=== PATIENT | male | born 1960 | race African-American/Black ===

== ENCOUNTER 2019-04-14 11:22 | Observation (INO) | payer BC ==
[2019-04-14] MEDS ORDERED: Labetalol HCl 100 MG/20 ML VIAL ONE (12:12)
--- NOTE | 2019-04-14 12:16 | RAD ---
PORTABLE CHEST 1 VIEW: DATE: 04/14/2019. TIME: 12:07 p.m. HISTORY: Chest pain. FINDINGS: The heart size is normal. The lungs are expanded without lobar consolidation, pneumothoraces, or ple ural effusions. IMPRESSION: No acute process. POS: OFF
[2019-04-14 12:19] LABS: #Eosinphils 0.1 thou/uL (0.0-0.7); #Monocytes 0.5 thou/uL (0.11-0.59); %Basophils 0.9 % (0.0-1.0); %Eosinophils 2.8 % (0.0-10.0); %Lymphocytes 28.7 % (21.0-51.0); %Monocytes 13.5 % (0.0-10.0); %Neutrophils 54.1 % (42.0-75.0); Hemoglobin 14.9 g/dL (14.0-18.0); Mean Corpuscular HGB CONC 35.1 g/dL (32.0-36.0); Mean Corpuscular Volume 99.7 fL (78.0-98.0); Mean Platelet Volume 7.1 fL (7.4-10.4); Platelet Count 208 thou/uL (130-400); Red Blood Cell (RBC) Count 4.24 mill/uL (4.70-6.10); White Blood Cell (WBC) Count 3.6 thou/uL (4.8-10.8)
[2019-04-14] MEDS ORDERED: Ondansetron PF 4 MG/2 ML Vial ONE (12:53)
[2019-04-14 13:03] LABS: ALT (SGPT) 26 U/L (8-55); AST (SGOT) 42 U/L (5-34); Albumin 4.5 g/dL (3.5-5.0); Alkaline Phosphatase 97 U/L (40-110); Anion Gap 17 mmol/L (10-20); BUN (Urea Nitrogen) 11 mg/dL (8.4-25.7); Bilirubin, Total 0.7 mg/dL (0.2-1.2); Calc. Creatinine Clearance 0 mL/min (70-130); Calcium 8.9 mg/dL (7.8-10.44); Carbon Dioxide 24 mmol/L (22-29); Chloride 105 mmol/L (98-107); Estimated GFR-MDRD Greater than 90; Globulin 2.9 g/dL (2.4-3.5); Glucose 89 mg/dL (70-105); Lipase 36 U/L (8-78); Potassium 4.1 mmol/L (3.5-5.1); Protein, Total 7.4 g/dL (6.0-8.3); Sodium 142 mmol/L (136-145)
[2019-04-14] MEDS ORDERED: Nitroglycerin 0.4 MG TAB (25 Tab Bottle) PO PRN (15:31)
[2019-04-14] MEDS ORDERED: Acetaminophen 650 MG Suppository PR PRN (15:36)
[2019-04-14] MEDS ORDERED: Acetaminophen 325 MG TAB PO PRN (15:36)
[2019-04-14] MEDS ORDERED: hydrALAZINE 20 MG/ML VIAL SLOW IVP PRN (15:43)
--- NOTE | 2019-04-14 15:50 | PDOC.HHP ---
Hospitalist HPI - History of Present Illness Chest pain History of Present Illness: The patient is a 58/M with PMH significant for HTN (non compliant) and smoking that presents for above complaint. While at work, doing non physical activity, developing left sided chest pain, onset 0740, non radiating, describes as constant pressure, exacerbated by nothing and relieved by nothing. Reports associated SOB, denies nausea, diaphoresis and light headedness. Reports having similar episode yesterday and several other times in the past 6 to 7 months. Each time he has called EMS, and they reported that his blood pressure was significantly elevated each time. Patient declined transport and chose to forego any treatment or workup. Reports pain would be relieved after resting or taking nap. Because the pain was persistent, the patient went to his local clinic for further evaluation. There, he reports that his blood pressure was elevated, SBP > 200, EMS was called. Patient was given full dose ASA, nitro SL x1, Nitro paste 1inch on chest and IVFs with resolution of chest pain. ED Course: EKG NSR with T wave inversions in inferior and lateral leads with some prolong QT. CXR negative Trop negative x 1 Patient became hypotensive and diaphoretic, so nurse removed nitro paste, gave zofran and 1L NS. Hospitalist ROS - Review of Systems Constitutional: denies: fever, chills, sweats, weakness, malaise, other Eyes: denies: pain, vision change, conjunctivae inflammation, eyelid inflammation, redness, other ENT: denies: ear pain, ear discharge, nose pain, nose discharge, nose congestion , mouth pain, mouth swelling, throat pain, throat swelling, other Respiratory: reports: shortness of breath. denies: cough, hemoptysis, SOB with excertion, sputum, wheezing Cardiovascular: reports: chest pain. denies: palpitations, orthopnea, paroxysmal noc. dyspnea, edema, light headedness Gastrointestinal: reports: nausea. 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) Gastrointestinal: reports: no pertinent history Heme/Onc: reports: no pertinent history Hepatobiliary: reports: no pertinent history Psych: reports: no pertinent history Musculoskeletal: reports: no pertinent history Infectious Disease: reports: no pertinent history ENT: reports: no pertinent history Renal/: reports: no pertinent history Dermatology: reports: no pertinent history - Past Surgical History Past Surgical History: reports: no pertinent history - Family History Family History: reports: cardiac disorder, respiratory disorder - Social History Smoking Status: Current every day smoker Tobacco Type: cigarettes Alcohol: reports: None Drugs: reports: none Living Situation: With Family 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, 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 - Exam General Appearance: NAD, awake alert Heart: RRR, no murmur, no gallops, no rubs, normal peripheral pulses Respiratory: CTAB, no wheezes, no rales, no ronchi Gastrointestinal: soft, non-tender, non-distended, normal bowel sounds, no guarding, no rigidity, tender to palpation Extremities: no cyanosis, no clubbing Neurological: cranial nerve grossly intact Psychiatric: normal affect, A&O x 3 Hospitalist Results - Labs Result Diagrams: 04/14/19 12:00 04/14/19 12:00 Lab results: WBC 3.6 thou/uL (4.8-10.8) L 04/14/19 12:00 Hgb 14.9 g/dL (14.0-18.0) 04/14/19 12:00 Hct 42.3 % (42.0-52.0) 04/14/19 12:00 MCV 99.7 fL (78.0-98.0) H 04/14/19 12:00 Plt Count 208 thou/uL (130-400) 04/14/19 12:00 Neutrophils % 54.1 % (42.0-75.0) 04/14/19 12:00 Sodium 142 mmol/L (136-145) 04/14/19 12:00 Potassium 4.1 mmol/L (3.5-5.1) 04/14/19 12:00 Chloride 105 mmol/L (98-107) 04/14/19 12:00 Carbon Dioxide 24 mmol/L (22-29) 04/14/19 12:00 BUN 11 mg/dL (8.4-25.7) 04/14/19 12:00 Creatinine 0.97 mg/dL (0.7-1.3) 04/14/19 12:00 Glucose 89 mg/dL (70-105) 04/14/19 12:00 Calcium 8.9 mg/dL (7.8-10.44) 04/14/19 12:00 Total Bilirubin 0.7 mg/dL (0.2-1.2) 04/14/19 12:00 AST 42 U/L (5-34) H 04/14/19 12:00 ALT 26 U/L (8-55) 04/14/19 12:00 Alkaline Phosphatase 97 U/L (40-110) 04/14/19 12:00 Troponin I 0.019 ng/mL (< 0.028) 04/14/19 12:00 Serum Total Protein 7.4 g/dL (6.0-8.3) 04/14/19 12:00 Albumin 4.5 g/dL (3.5-5.0) 04/14/19 12:00 Lipase 36 U/L (8-78) 04/14/19 12:00 Additional comment: Laboratory Tests 04/14/19 04/14/19 12:00 12:00 Troponin I 0.019 Lipase 36 - EKG Interpretation EKG: NSR, T wave inversion in inferior, lateral leads, prolong QT - Radiology Interpretation Chest x-ray Status: report reviewed by me Hospitalist H&P A/P - Plan Plan: Chest pain currently resolved Impression: Chest pain, unstable angina HTN, chronic Tobacco abuse Plan: director of cardiac rehabilitation Trend troponins Continue ASA Start BB, AYLEEN, Statin Monitor Blood pressure order FLP, TSH Echocardiogram Consult cardiology NPO after midnight Repeat CMP, CBC
[2019-04-14] MEDS ORDERED: Labetalol HCl 100 MG/20 ML VIAL SLOW IVP PRN (16:08)
[2019-04-14] MEDS ORDERED: Nitroglycerin 2% Ointment 1 INCH/1 GM Packet TOP PRN (16:18)
[2019-04-14 16:21] LABS: Troponin I Less than 0.010 ng/mL (< 0.028)
[2019-04-14 17:32] VITALS: BMI 25.9
[2019-04-14] MEDS: Carvedilol 6.25 MG TAB PO SCH (17:37)
[2019-04-14 18:56] LABS: INR-International Normal Ratio 0.9; PTT 29.7 SEC (22.9-36.1); Prothrombin Time 12.4 SEC (12.0-14.7)
[2019-04-14 19:09] LABS: Troponin I Less than 0.010 ng/mL (< 0.028)
--- NOTE | 2019-04-14 20:52 | PRG ---
DATE OF SERVICE: 04/14/2019 SUBJECTIVE: The patient was seen and examined. In summary, the patient is a 58-year-old patient with hypertension, currently not taking medication with ongoing tobacco abuse, presented to the emergency room with chest discomfort. His systolic blood pressures were over 200. His chest discomfort improved with nitroglycerin. His troponins were negative. I reviewed the current vital signs. He does not take any prescription medication. OBJECTIVE: LUNGS: Clear to auscultation bilaterally. HEART: S1 and S2 present. LABORATORY DATA: His labs were reviewed. DIAGNOSTIC DATA: EKG showed sinus rhythm with left ventricular hypertrophy with nonspecific ST-T wave changes. Chest x-ray was negative. I agree with the history and physical by Devin Easton. We will keep the patient n.p.o. past midnight. Echocardiogram will be obtained. We will follow troponins. We will start him on low-dose carvedilol with AYELEN inhibitor. Job ID: [id number]
[2019-04-14] MEDS: Lisinopril 5 MG TAB PO SCH (20:53)
[2019-04-14] MEDS ORDERED: Atorvastatin Calcium 40 MG TAB PO SCH (21:00)
[2019-04-14] MEDS ORDERED: Sodium Chloride 0.9% 1,000 ML IV SCH (23:30)
[2019-04-15 05:09] LABS: Band 2 % (5-11); Eosinophils 2 % (0-10); Hemoglobin 14.3 g/dL (14.0-18.0); Lymphocytes 31 % (21-51); MDiff Complete? YES; Mean Corpuscular HGB CONC 34.2 g/dL (32.0-36.0); Mean Corpuscular Hemoglobin 34.5 pg (27.0-31.0); Mean Platelet Volume 7.2 fL (7.4-10.4); Monocytes 7 % (0-10); Neutrophil 58 % (42-75); Platelet Count 187 thou/uL (130-400); Platelet Morphology Comment Appears Adequate; Red Blood Cell (RBC) Count 4.15 mill/uL (4.70-6.10); White Blood Cell (WBC) Count 3.4 thou/uL (4.8-10.8)
[2019-04-15 05:20] LABS: ALT (SGPT) 21 U/L (8-55); AST (SGOT) 32 U/L (5-34); Albumin 3.9 g/dL (3.5-5.0); Alkaline Phosphatase 86 U/L (40-110); Anion Gap 12 mmol/L (10-20); BUN (Urea Nitrogen) 10 mg/dL (8.4-25.7); Calc. Creatinine Clearance 98 mL/min (70-130); Calcium 9.3 mg/dL (7.8-10.44); Carbon Dioxide 27 mmol/L (22-29); Cardiac Risk 1.8 (Less than 4.5); Chloride 104 mmol/L (98-107); Cholesterol 171 mg/dl (< 200 Desired); Estimated GFR-MDRD Greater than 90; Glucose 90 mg/dL (70-105); HDL Cholesterol 93 mg/dL (>60 Neg Risk); LDL Cholesterol, Calculated 59 mg/dL; Potassium 3.8 mmol/L (3.5-5.1); Protein, Total 6.9 g/dL (6.0-8.3); Sodium 139 mmol/L (136-145); Triglycerides 94 mg/dL (Less than 150)
[2019-04-15] MEDS: Carvedilol 6.25 MG TAB PO SCH ×2 (08:00→15:47)
[2019-04-15] MEDS: Lisinopril 5 MG TAB PO SCH (08:00)
--- NOTE | 2019-04-15 08:28 | PDOC.HOSPP ---
- Subjective Encounter Date: 04/15/19 Encounter Time: 10:20 Subjective: Patient without any chest pain. No SOB. NPO. - Objective Vital Signs & Weight: Vital Signs (12 hours) Temp Pulse Resp BP BP Pulse Ox 04/15/19 08:00 64 04/15/19 03:18 98.6 F 64 16 167/98 H 97 04/15/19 00:43 98.0 F 72 16 153/91 H 96 04/14/19 20:53 75 Weight Weight 160 lb 5 oz I&O: 04/14/19 04/15/19 04/16/19 06:59 06:59 06:59 Intake Total 240 Balance 240 Result Diagrams: 04/15/19 04:30 04/15/19 04:30 Hospitalist ROS - Review of Systems Constitutional: denies: fever, chills Respiratory: denies: cough, shortness of breath Cardiovascular: denies: chest pain, palpitations Gastrointestinal: denies: nausea, vomiting, abdominal pain - Medication Medications: Active Medications Generic Name Dose Route Start Last Admin Trade Name Sukhwinderq PRN Reason Stop Dose Admin Aspirin 81 mg 04/15/19 09:00 04/15/19 08:00 Ecotrin PO 81 mg DAILY VIOLETA Administration Atorvastatin Calcium 40 mg 04/14/19 21:00 04/14/19 20:53 Lipitor PO 40 mg HS VIOLETA Administration Carvedilol 6.25 mg 04/14/19 17:00 04/15/19 08:00 Coreg PO 6.25 mg BID-WM VIOLETA Administration Lisinopril 5 mg 04/14/19 21:00 04/15/19 08:00 Zestril PO 5 mg BID VIOLETA Administration Sodium Chloride 10 ml 04/14/19 21:00 04/15/19 08:00 Flush - Normal Saline IVF 10 ml Q12HR VIOLETA Administration - Exam General Appearance: NAD, awake alert ENT: moist mucosa Heart: RRR, no murmur, no gallops, no rubs Respiratory: CTAB, no wheezes, no rales, no ronchi Gastrointestinal: soft, non-tender, non-distended, normal bowel sounds Psychiatric: normal affect, normal behavior, A&O x 3 Hosp A/P (1) Unstable angina Status: Acute (2) Hypertension Code(s): I10 - ESSENTIAL (PRIMARY) HYPERTENSION Status: Chronic Qualifiers: Hypertension type: essential hypertension Qualified Code(s): I10 - Essential (primary) hypertension Plan: uncontrolled (3) Tobacco abuse Code(s): Z72.0 - TOBACCO USE Status: Chronic - Plan NPO, ECHO pending Patient with multiple risk factors and abnormal EKG, flipped T-waves in lateral leads. Will get NM stress test, should be able to exercise for it. Cardiology consulted.
[2019-04-15] MEDS ORDERED: Aspirin 81 mg Enteric Coated Tablet PO SCH (09:00)
--- NOTE | 2019-04-15 11:54 | CON ---
DATE OF CONSULTATION: 04/15/2019 HISTORY OF PRESENT ILLNESS: A 58-year-old male, current smoker, with past medical history of hypertension, presented yesterday morning for 3-1/2 hour episode of chest pain. Denied SOB, palpitations, nausea, or diaphoresis. The patient reports he had similar left-sided chest pain 2 days prior, that lasted for about 2 to 3 hours while he was at work, and then resolved when he went home. The patient reported the pain was left-sided and felt like pressure, 8/10. He went to be seen at clinic yesterday and they found that his blood pressure was elevated, systolic above 200, so EMS was called and he was transported here. The patient was given aspirin and nitroglycerin, and his pain resolved. However , his blood pressure dropped significantly, so the nitroglycerin paste was taken off and the patient was given some IV fluids. On his EKG, he had diffuse T-wave inversions. The patient reports significant family history of heart attacks in his sisters and his son at 33 years of age. ALLERGIES: NONE. MEDICATIONS: None. PAST MEDICAL HISTORY: 1. Hypertension. 2. Tobacco abuse. PAST SURGICAL HISTORY: None. SOCIAL HISTORY: The patient smokes half a pack to one pack a day for the past 16 years. The patient reports daily alcohol use, 16-ounce beer per day. Denies drug use. FAMILY HISTORY: Multiple sisters with heart attacks in 50s and 60s. Son with a heart attack at age 33. REVIEW OF SYSTEMS: 12 point ROS negative except as noted above in HPI. PHYSICAL EXAMINATION: VITAL SIGNS: Temperature 98.3, pulse 54, respirations 14, O2 saturation 99% on room air, and blood pressure 166/98. GENERAL: A well-appearing black male, in no acute distress, lying in the bed. HEAD: Normocephalic and atraumatic. EYES: Extraocular motion intact. PERRLA. CARDIAC: Regular rate and rhythm. No murmurs, rubs, or gallops. LUNGS: Bilaterally clear to auscultation. ABDOMEN: Soft and nontender. No organomegaly. NEUROLOGIC: Strength 5/5 in upper and lower extremities. EXTREMITIES: Pulses 2+ in upper and lower extremities. No edema in bilateral lower extremities. Skin: Warm and dry, no erythema. ASSESSMENT AND PLAN: 1. Chest pain of unclear etiology, may be secondary to HTN. EKG showed some diffuse T-wave inversions and possible LVH. HEART score of six. Troponins negative x3. Plan for stress test today, if positive patient will need a cardiac cath. 2. Hypertension. EKG showed possible LVH. Recommend Echo for further workup. 3. Tobacco. 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 Job ID: [id number] MTDD
[2019-04-15 16:26] VITALS: BP 143/97; TEMP 98.7
--- NOTE | 2019-04-15 16:31 | NM ---
NUCLEAR MEDICINE CARDIAC MYOCARDIAL PERFUSION SPECT EJECTION FRACTION STUDY WALL MOTION CINE: DATE: 04/15/2019 HISTORY: 58-year-old male hypertensive smoker presents with chest pain and dyspnea TECHNIQUE: Number of days: 1 Rest study: Technetium 99m-sestamibi (Cardiolite) dose: 9.8 mCi Exercise stress: Treadmill Stress study: Technetium 99m-sestamibi (Cardiolite) dose: 31.4 mCi FINDINGS: CARDIAC (MYOCARDIAL PERFUSION) SPECT There are no reversible myocardial perfusion defects. EJECTION FRACTION STUDY Left ventricular EF = 51 % WALL MOTION CINE Normal IMPRESSION: No evidence of reversible ischemia.
--- NOTE | 2019-04-15 16:35 | CON ---
DATE OF CONSULTATION: 04/15/2019 INDICATION FOR CONSULTATION: A 58-year-old patient with chest pressure, hypertension, who admitted to the emergency room. EKG showed diffuse T-wave inversions. He was admitted to the hospital. Cardiac enzymes remain negative. EKG is unchanged. His blood pressures been under better control, but still remains elevated in the 160s. He has had no previous cardiac history that he is aware of. His only risk factors for coronary disease include tobacco abuse, which he has been smoking for the last 7 or 8 years up to one pack a day and also has hypertension. He denied any hypercholesterolemia. He was on no previous medications. His LDL is not significantly elevated, it is only 59. At this time, we would suggest he undergo a stress test to rule out evidence of underlying ischemia. If he has been found to have an abnormal stress test and further evaluation would involve doing a cardiac catheterization. We will also perform an echocardiogram due to his hypertension. He may have left ventricular hypertrophy and just for completeness, we will evaluate that and also his left ventricular systolic function. PAST MEDICAL HISTORY: Otherwise unremarkable. REVIEW OF SYSTEMS: A 12-point review of systems is unremarkable. ALLERGIES: NONE. MEDICATIONS: His medications prior to admission were none. FAMILY HISTORY: Noncontributory at this time. PHYSICAL EXAMINATION: GENERAL: Reveals a well-developed, well-nourished gentleman, in no acute distress. He is alert. He is oriented. VITAL SIGNS: Blood pressure 166/98, heart rates in the 50s to 60s and shows a sinus rhythm. He is afebrile. Respiratory rate is about 16. HEENT: Shows the head to be normocephalic and atraumatic. NECK: Carotid pulses are present. There were no bruits. CHEST: Clear to auscultation without rales, rhonchi, or wheezing. CARDIOVASCULAR: Reveals a regular rate and rhythm. I cannot hear an S3 nor an S4. There were no significant murmurs, heaves, thrills, bruits, or rubs. ABDOMEN: Soft, flat, nontender. Positive bowel sounds are present. EXTREMITIES: Show no clubbing, cyanosis, or edema. NEUROLOGIC: The patient is fully intact. He has normal strength and normal tone. SKIN: Warm and dry. PSYCHOSOCIAL: Appears to be normal. LABORATORY DATA: Shows a sodium of 139, potassium was 3.8, BUN was 10, creatinine 0.87. His blood sugar was 90. Total bilirubin was slightly elevated at 2.0, AST was 42, but then decreased down to 32. Troponin Is negative for myocardial infarction. His hemoglobin was 14.3, WBC was 3.4, and platelet count 187,000. EKG as noted shows normal sinus rhythm with evidence of left ventricular hypertrophy and T-wave inversions which may be secondary to the left ventricular hypertrophy. IMPRESSION: At this time, given that the patient has new onset of chest pain of uncertain etiology, this may be due to the hypertension, may be due to underlying coronary artery disease. We will schedule him for stress testing. If there is any evidence of ischemia, he will need to undergo a cardiac catheterization. If unremarkable, we will continue to treat with medications for lowering of the blood pressure. We will also obtain echocardiogram due to his history of hypertension. He may have left ventricular hypertrophy. Otherwise, the patient appears to be relatively stable at this time. Further recommendations will depend on the results of the stress test as well as the echocardiogram. Job ID: [id number]
--- NOTE | 2019-04-16 02:49 | DIS ---
DATE OF ADMISSION: 04/14/2019 DATE OF DISCHARGE: 04/15/2019 PRIMARY CARE PHYSICIAN: None. REASON FOR ADMISSION: Chest pain. DIAGNOSES AT DISCHARGE: 1. Chest pain, resolved. 2. Hypertension. 3. Tobacco abuse. PROCEDURES: Nuclear medicine stress testing showing normal stress myocardial perfusion scan. CONSULTATION: Cardiology, Dr. Joseph. SUMMARY OF HOSPITAL COURSE: This is a 58-year-old male with a history of hypertension, on no medications, who continues to smoke. He developed left-sided chest pain at his work while not doing physical activity, left-sided, nonradiating, associated with shortness of breath. No other symptoms. He had some similar episodes several times over the past 6 to 7 months but has always declined transport by EMS when they went to pick him up. This time, he went to the emergency room. There, he was found to have severely elevated blood pressure by EMS, given nitroglycerin paste with improvement in his blood pressures and aspirin and sublingual nitroglycerin, and he had resolution of his chest pain. The patient was observed in the hospital overnight. He had negative cardiac markers x3. No more recurrence of chest pain. He had a nuclear medicine stress test that was negative. Dr. Joseph was consulted. She recommended a catheterization if his stress test was abnormal, but as it was negative, she recommended followup in the clinic. She does recommend that he need to get an echocardiogram at some point due to his longstanding hypertension. We were not able to get that done today, so that can be done in the clinic when he follows with her. DISCHARGE MANAGEMENT: Discharged home. FOLLOWUP: Follow up with Dr. Joseph in 2 to 3 weeks and establish with primary care provider in the next 1 to 2 weeks. ACTIVITY: As tolerated. DIET: Healthy heart, low-sodium diet. The patient is to quit smoking. MEDICATIONS: 1. Aspirin 81 mg daily, 30 tablets, dispensed. 2. Carvedilol 6.25 mg twice a day, 60 tablets, dispensed. 3. Lisinopril 20 mg daily, 30 tablets, dispensed. Job ID: [id number]
== END 2019-04-15 18:00 | disposition home or self-care (01) ==
LOC: ERS 11:22 → ERHOLD 14:30 → 2SW 17:23
PROVIDERS: ADMIT Internal Medicine; ATTEND Emergency Medicine
DX: R07.89 Other chest pain (principal); I10 Essential (primary) hypertension; F17.210 Nicotine dependence, cigarettes, uncomplicated; Z91.14 Patient's other noncompliance with medication regimen
CPT/HCPCS: 36415; 71045; 78452; 80053; 80061; 83690; 84443; 84484; 85025; 85610; 85730; 93005; 93017; 96361; 96374; A9500; G0378; J2405

== ENCOUNTER 2019-08-25 09:25 | Emergency (ER) | payer BC ==
[2019-08-25] MEDS ORDERED: Aspirin Chewable 81 MG TAB ONE (10:00)
[2019-08-25] MEDS ORDERED: Nitroglycerin 2% Ointment 1 INCH/1 GM Packet ONE (10:00)
[2019-08-25 10:13] LABS: #Basophils 0.1 thou/uL (0.0-0.2); #Eosinphils 0.1 thou/uL (0.0-0.7); #Lymphocytes 1.3 thou/uL (1.20-3.40); #Monocytes 0.5 thou/uL (0.11-0.59); #Neutrophils 2.1 thou/uL (1.40-6.50); %Basophils 1.9 % (0.0-1.0); %Eosinophils 2.2 % (0.0-10.0); %Monocytes 12.1 % (0.0-10.0); %Neutrophils 50.8 % (42.0-75.0); Hemoglobin 14.4 g/dL (14.0-18.0); Mean Corpuscular HGB CONC 34.4 g/dL (32.0-36.0); Mean Corpuscular Hemoglobin 34.3 pg (27.0-31.0); Mean Corpuscular Volume 99.8 fL (78.0-98.0); Mean Platelet Volume 7.6 fL (7.4-10.4); Platelet Count 230 thou/uL (130-400); RBC Distribution Width 11.7 % (11.5-14.5); White Blood Cell (WBC) Count 4.1 thou/uL (4.8-10.8)
--- NOTE | 2019-08-25 10:18 | RAD ---
EXAM: Single view of the chest HISTORY: Intermittent dizziness and difficulty breathing COMPARISON: 04/14/2019 FINDINGS: Single view of the chest shows a normal sized cardiomediastinal silhouette. There is no nicolas dence of consolidation, mass, or pleural effusion. The bones are unremarkable. IMPRESSION: No evidence of acute cardiopulmonary disease
[2019-08-25 10:35] LABS: ALT (SGPT) 52 U/L (8-55); AST (SGOT) 85 U/L (5-34); Albumin 4.1 g/dL (3.5-5.0); Alkaline Phosphatase 94 U/L (40-110); Anion Gap 15 mmol/L (10-20); BUN (Urea Nitrogen) 9 mg/dL (8.4-25.7); Bilirubin, Total 0.6 mg/dL (0.2-1.2); Calc. Creatinine Clearance 0 mL/min (70-130); Calcium 8.9 mg/dL (7.8-10.44); Carbon Dioxide 24 mmol/L (22-29); Chloride 107 mmol/L (98-107); Estimated GFR-MDRD Greater than 90; Globulin 3.2 g/dL (2.4-3.5); Glucose 93 mg/dL (70-105); Lipase 46 U/L (8-78); Potassium 3.8 mmol/L (3.5-5.1); Protein, Total 7.3 g/dL (6.0-8.3); Sodium 142 mmol/L (136-145)
== END 2019-08-25 13:18 | disposition home or self-care (01) ==
LOC: ERS 09:25
DX: R07.9 Chest pain, unspecified (principal); I10 Essential (primary) hypertension; F17.210 Nicotine dependence, cigarettes, uncomplicated; Z79.82 Long term (current) use of aspirin; Z79.899 Other long term (current) drug therapy
CPT/HCPCS: 71045; 80053; 83690; 83880; 84484; 85025; 93005

== ENCOUNTER 2019-10-06 12:27 | Emergency (ER) | payer BC ==
[2019-10-06 13:17] LABS: #Basophils 0.1 thou/uL (0.0-0.2); #Eosinphils 0.1 thou/uL (0.0-0.7); #Lymphocytes 1.8 thou/uL (1.20-3.40); #Monocytes 0.4 thou/uL (0.11-0.59); %Basophils 1.7 % (0.0-1.0); %Eosinophils 2.1 % (0.0-10.0); %Lymphocytes 40.6 % (21.0-51.0); %Monocytes 9.6 % (0.0-10.0); Hemoglobin 15.8 g/dL (14.0-18.0); Mean Corpuscular HGB CONC 35.7 g/dL (32.0-36.0); Mean Corpuscular Hemoglobin 35.5 pg (27.0-31.0); Mean Corpuscular Volume 99.2 fL (78.0-98.0); Platelet Count 256 thou/uL (130-400); RBC Distribution Width 11.3 % (11.5-14.5); Red Blood Cell (RBC) Count 4.46 mill/uL (4.70-6.10); White Blood Cell (WBC) Count 4.3 thou/uL (4.8-10.8)
[2019-10-06 13:39] LABS: ALT (SGPT) 25 U/L (8-55); AST (SGOT) 46 U/L (5-34); Albumin 4.2 g/dL (3.5-5.0); Alkaline Phosphatase 99 U/L (40-110); Anion Gap 15 mmol/L (10-20); BUN (Urea Nitrogen) 15 mg/dL (8.4-25.7); Bilirubin, Total 0.7 mg/dL (0.2-1.2); Calc. Creatinine Clearance 0 mL/min (70-130); Calcium 8.7 mg/dL (7.8-10.44); Carbon Dioxide 25 mmol/L (22-29); Chloride 104 mmol/L (98-107); Estimated GFR-MDRD 89; Globulin 3.2 g/dL (2.4-3.5); Glucose 79 mg/dL (70-105); Potassium 4.3 mmol/L (3.5-5.1); Protein, Total 7.4 g/dL (6.0-8.3); Sodium 140 mmol/L (136-145)
== END 2019-10-06 14:06 | disposition left against medical advice (07) ==
LOC: ERS 12:27
DX: R06.02 Shortness of breath (principal); R42 Dizziness and giddiness; Z20.828 Contact with and (suspected) exposure to other viral communicable diseases; I10 Essential (primary) hypertension; F17.210 Nicotine dependence, cigarettes, uncomplicated; Z79.82 Long term (current) use of aspirin; Z79.899 Other long term (current) drug therapy
CPT/HCPCS: 80053; 84484; 85025; 93005

== ENCOUNTER 2019-12-09 08:35 | Emergency (ER) | payer BC ==
[2019-12-09 09:32] LABS: ALT (SGPT) 21 U/L (8-55); AST (SGOT) 36 U/L (5-34); Albumin 4.2 g/dL (3.5-5.0); Alkaline Phosphatase 98 U/L (40-110); Anion Gap 17 mmol/L (10-20); BUN (Urea Nitrogen) 9 mg/dL (8.4-25.7); Bilirubin, Total 0.7 mg/dL (0.2-1.2); Calc. Creatinine Clearance 0 mL/min (70-130); Calcium 8.7 mg/dL (7.8-10.44); Carbon Dioxide 23 mmol/L (22-29); Chloride 106 mmol/L (98-107); Estimated GFR-MDRD Greater than 90; Globulin 2.9 g/dL (2.4-3.5); Glucose 105 mg/dL (70-105); Potassium 4.4 mmol/L (3.5-5.1); Protein, Total 7.1 g/dL (6.0-8.3); Sodium 142 mmol/L (136-145)
--- NOTE | 2019-12-09 10:03 | RAD ---
PORTABLE CHEST 1 VIEW: Date: 12/09/2019 Time: 0914 hours HISTORY: Chest pain. FINDINGS: Comparison made with exam of 08/05/2019. The heart size is normal. The aorta is tortuous. There is evidence of old granulomatous disease. No l obar consolidation, pneumothoraces, or pleural effusions are seen. IMPRESSION: No radiographic evidence of acute cardiopulmonary process. POS: AH
[2019-12-09 10:28] LABS: #Basophils 0.1 thou/uL (0.0-0.2); #Eosinphils 0.2 thou/uL (0.0-0.7); #Lymphocytes 1.4 thou/uL (1.20-3.40); #Monocytes 0.5 thou/uL (0.11-0.59); #Neutrophils 1.9 thou/uL (1.40-6.50); %Basophils 1.2 % (0.0-1.0); %Eosinophils 4.6 % (0.0-10.0); %Lymphocytes 34.7 % (21.0-51.0); %Monocytes 13.1 % (0.0-10.0); %Neutrophils 46.5 % (42.0-75.0); Hemoglobin 15.3 g/dL (14.0-18.0); Mean Corpuscular Hemoglobin 34.7 pg (27.0-31.0); Mean Platelet Volume 7.8 fL (7.4-10.4); Platelet Count 275 thou/uL (130-400); Red Blood Cell (RBC) Count 4.41 mill/uL (4.70-6.10); White Blood Cell (WBC) Count 4.2 thou/uL (4.8-10.8)
[2019-12-09 11:56] LABS: Troponin I Less than 0.010 ng/mL (< 0.028)
== END 2019-12-09 11:48 | disposition left against medical advice (07) ==
LOC: ERS 08:35
DX: R07.9 Chest pain, unspecified (principal); I10 Essential (primary) hypertension; F17.210 Nicotine dependence, cigarettes, uncomplicated; Z79.82 Long term (current) use of aspirin; Z79.899 Other long term (current) drug therapy
CPT/HCPCS: 36415; 71045; 80053; 84484; 85025; 93005; 94760

== ENCOUNTER 2021-07-02 09:09 | Emergency (ER) | payer BC, SELFPAY ==
[2021-07-02] MEDS ORDERED: predniSONE 20 MG TAB ONE (09:42)
[2021-07-02] MEDS ORDERED: Famotidine/PF 20 mg/2ml Vial ONE (09:42)
[2021-07-02] MEDS ORDERED: diphenhydrAMINE 50 MG/ML VIAL ONE (09:42)
== END 2021-07-02 10:43 | disposition home or self-care (01) ==
LOC: ERS 09:09
DX: L30.9 Dermatitis, unspecified (principal); I10 Essential (primary) hypertension; F17.210 Nicotine dependence, cigarettes, uncomplicated; Z79.899 Other long term (current) drug therapy; Z79.82 Long term (current) use of aspirin
CPT/HCPCS: 96374; 96375; J1200; J7512; S0028

== ENCOUNTER 2021-10-01 10:08 | Emergency (ER) | payer SELFPAY | END 2021-10-01 10:57 | disposition home or self-care (01) | LOC: ERS 10:08 | DX: B35.4 Tinea corporis (principal); I10 Essential (primary) hypertension; F17.210 Nicotine dependence, cigarettes, uncomplicated | CPT/HCPCS: 99282 ==

== ENCOUNTER 2023-04-24 14:50 | Observation (INO) | payer SELFPAY ==
[~2023-04-24 14:50] MED LIST: Iopamidol-370 76% 500 ML MDV (1 ML CHARGE) ONE
[2023-04-24 16:08] LABS: #Monocytes 0.9 thou/uL (0.11-0.59); %Basophils 0.2 % (0.0-1.0); %Lymphocytes 10.6 % (21.0-51.0); %Monocytes 13.5 % (0.0-10.0); %Neutrophils 75.4 % (42.0-75.0); Hematocrit 32.7 % (42.0-52.0); Hemoglobin 11.8 g/dL (14.0-18.0); Mean Corpuscular HGB CONC 36.1 g/dL (32.0-36.0); Mean Corpuscular Hemoglobin 35.8 pg (27.0-31.0); Mean Corpuscular Volume 99.1 fl (78.0-98.0); Mean Platelet Volume 10.7 fL (7.4-10.4); Platelet Count 92 10x3/uL (130-400); RBC Distribution Width 12.4 % (11.5-14.5); White Blood Cell (WBC) Count 6.6 10x3/uL (4.8-10.8)
[2023-04-24 16:35] LABS: ALT (SGPT) 21 U/L (8-55); AST (SGOT) 35 U/L (5-34); Albumin 4.5 g/dL (3.5-5.0); Alkaline Phosphatase 77 U/L (40-110); Anion Gap 18 mmol/L (10-20); BUN (Urea Nitrogen) 31 mg/dL (8.4-25.7); Bilirubin, Total 1.6 mg/dL (0.2-1.2); Calc. Creatinine Clearance 0 mL/min (70-130); Calcium 10.2 mg/dL (7.8-10.44); Carbon Dioxide 18 mmol/L (22-29); Chloride 102 mmol/L (98-107); Estimated GFR 60; Globulin 3.2 g/dL (2.4-3.5); Glucose 128 mg/dL (70-105); Lipase 512 U/L (8-78); Potassium 3.7 mmol/L (3.5-5.1); Protein, Total 7.7 g/dL (6.0-8.3); Sodium 134 mmol/L (136-145)
[2023-04-24 16:38] LABS: Troponin I Less than 0.010 ng/mL (< 0.028)
[2023-04-24 17:33] LABS: Bacteria/HPF None Seen HPF (None Seen); Bilirubin 1+ (Negative); Blood, Urine Trace (Negative); CAUTI Indications for Culture Dysuria,urgency,freq; Clarity Clear (Clear); Glucose, Urine (Dipstick) Normal (Negative); Ketone, Urine 40 mg/dL (Negative); Leukocyte Negative Leu/uL (Negative); Nitrite Negative (Negative); Protein, Urine (Dipstick) 100 mg/dL (Neg-Trace); Squamous Epithelial 0-3 HPF (0-3); Urobilinogen 6 mg/dL (Less than 2); WBC/HPF 0-3 HPF (0-3); pH, Urine 6.5 (5.0-9.0)
[2023-04-24 17:34] LABS: Specific Gravity, Urine 1.056 (1.002-1.036)
[2023-04-24 17:36] LABS: Urine Culture Reflex No No
[2023-04-24] MEDS ORDERED: Ondansetron ODT 4 MG TAB PO PRN (17:39)
[2023-04-24] MEDS ORDERED: HYDROcodone/Acetaminophen 10/325 mg Tablet PO PRN (17:39)
[2023-04-24] MEDS ORDERED: Acetaminophen 325 MG TAB PO PRN (17:39)
[2023-04-24 20:30] VITALS: BMI 21.9
[2023-04-24] MEDS: Lactated Ringer's 1,000 ML IV SCH (20:36)
[2023-04-24] MEDS: Famotidine/PF 20 mg/2ml Vial SLOW IVP SCH (20:36)
[2023-04-24] MEDS: Folic Acid 1 MG TAB PO SCH (20:37)
[2023-04-24] MEDS: Multivit, Therapeutic 1 TAB PO SCH (20:37)
[2023-04-24] MEDS: Thiamine 100 MG TAB PO SCH (20:37)
[2023-04-25] MEDS: Lorazepam 2 MG/ML VIAL SLOW IVP PRN (03:39)
[2023-04-25 05:54] LABS: ALT (SGPT) 14 U/L (8-55); AST (SGOT) 29 U/L (5-34); Albumin 3.8 g/dL (3.5-5.0); Alkaline Phosphatase 64 U/L (40-110); Anion Gap 14 mmol/L (10-20); BUN (Urea Nitrogen) 18 mg/dL (8.4-25.7); Bilirubin, Total 1.5 mg/dL (0.2-1.2); Calc. Creatinine Clearance 69 mL/min (70-130); Calcium 9.5 mg/dL (7.8-10.44); Carbon Dioxide 19 mmol/L (22-29); Chloride 103 mmol/L (98-107); Estimated GFR 99; Globulin 2.9 g/dL (2.4-3.5); Glucose 92 mg/dL (70-105); Lipase 466 U/L (8-78); Potassium 3.1 mmol/L (3.5-5.1); Protein, Total 6.7 g/dL (6.0-8.3); Sodium 133 mmol/L (136-145)
[2023-04-25] MEDS: Folic Acid 1 MG TAB PO SCH (08:23)
[2023-04-25] MEDS: Thiamine 100 MG TAB PO SCH (08:23)
[2023-04-25] MEDS: Multivit, Therapeutic 1 TAB PO SCH (08:23)
[2023-04-25] MEDS: Aspirin 81 mg Enteric Coated Tablet PO SCH (08:23)
[2023-04-25] MEDS: Carvedilol 6.25 MG TAB PO SCH (08:23)
[2023-04-25] MEDS: Potassium Chloride 20 MEQ TAB PO SCH (10:15)
[2023-04-25] MEDS: Lactated Ringer's 1,000 ML IV SCH (10:15)
[2023-04-26 08:18] VITALS: BP 133/88; TEMP 98.3
[2023-04-26] MEDS ORDERED: Potassium Chloride 20 MEQ TAB PO SCH (09:00)
== END 2023-04-26 12:45 | disposition home or self-care (01) ==
LOC: ERS 14:50 → T4-B 17:42 → INTOOBSV 17:42
PROVIDERS: ADMIT Internal Medicine; ATTEND Internal Medicine
DX: K85.20 Alcohol induced acute pancreatitis without necrosis or infection (principal); I10 Essential (primary) hypertension; N17.9 Acute kidney failure, unspecified; F17.210 Nicotine dependence, cigarettes, uncomplicated; F10.20 Alcohol dependence, uncomplicated; Z79.82 Long term (current) use of aspirin; Z79.899 Other long term (current) drug therapy
CPT/HCPCS: 36415; 71260; 74177; 80053; 81001; 83605; 83690; 84484; 85025; 93005; 96374; 96375; 96376; G0378; J2060; J7120; Q9967; S0028

== ENCOUNTER 2024-11-10 09:01 | Outpatient (CLI) | payer OTHER ==
[2024-11-10] MEDS ORDERED: GASTROGRAFIN 30 ML BOT ONE (15:14)
[2024-11-10] MEDS ORDERED: Iopamidol 370 76% 100 ML VIAL ONE (15:14)
== END 2024-11-10 09:02 | disposition home or self-care (01) ==
LOC: CT 09:01
PROVIDERS: ATTEND Internal Medicine Hematology & Oncology
DX: D50.0 Iron deficiency anemia secondary to blood loss (chronic) (principal); D72.818 Other decreased white blood cell count; F10.10 Alcohol abuse, uncomplicated; K76.0 Fatty (change of) liver, not elsewhere classified; K80.20 Calculus of gallbladder without cholecystitis without obstruction; K82.8 Other specified diseases of gallbladder
CPT/HCPCS: 74177; Q9963; Q9967